=== PATIENT | female | born 1995 | race American Indian/Alaskan Native ===

== ENCOUNTER 2022-01-17 00:25 | Emergency (ER) | payer MEDICAID ==
[2022-01-17] MEDS ORDERED: Clindamycin HCl 150 MG Cap PO ONE (01:15)
== END 2022-01-17 01:29 | disposition home or self-care (01) ==
LOC: FB.ED 00:25
DX: K05.10 Chronic gingivitis, plaque induced (principal); Z88.0 Allergy status to penicillin; Z88.5 Allergy status to narcotic agent; Z79.899 Other long term (current) drug therapy
CPT/HCPCS: 99282; A9270

== ENCOUNTER 2022-02-17 16:03 | Emergency (ER) | payer MEDICAID ==
[2022-02-17] MEDS ORDERED: Lidocaine 2% with EPINEPHrine 1:200,000 10 ML SDV INFILT ONE (16:04)
[2022-02-17] MEDS ORDERED: Lidocaine 2% with EPINEPHrine 1:100,000 20 ML MDV INFILT ONE (16:04)
[2022-02-17] MEDS ORDERED: Acetaminophen/oxyCODONE 325-5 MG Tab PO PRN (16:45)
[2022-02-17] MEDS ORDERED: Clindamycin HCl 150 MG Cap PO ONE (19:19)
== END 2022-02-17 19:37 | disposition home or self-care (01) ==
LOC: FB.ED 16:03
DX: S71.111A Laceration without foreign body, right thigh, initial encounter (principal); Z88.0 Allergy status to penicillin; Z88.5 Allergy status to narcotic agent; W20.8XXA Other cause of strike by thrown, projected or falling object, initial encounter
CPT/HCPCS: 12004; 99282; A9270

== ENCOUNTER 2023-01-11 19:01 | Emergency (ER) | payer MEDICAID ==
[2023-01-11] MEDS: hydrOXYzine HCl 25 MG Tab PO ONE (19:28)
[2023-01-11] MEDS: Famotidine 20 MG Tab PO ONE (19:29)
[2023-01-11] MEDS: Dexamethasone 4 MG/ML 5 ML MDV PO ONE (19:29)
== END 2023-01-11 20:18 | disposition home or self-care (01) ==
LOC: FB.ED 19:01
DX: T63.441A Toxic effect of venom of bees, accidental (unintentional), initial encounter (principal); Z88.0 Allergy status to penicillin; Z88.1 Allergy status to other antibiotic agents; Z88.5 Allergy status to narcotic agent
CPT/HCPCS: 99282; A9270-GY; J8540